=== PATIENT | female | born 1950 | race Caucasian/White ===

== ENCOUNTER 2017-08-09 16:00 | Inpatient (IN) | payer MEDICARE ==
[~2017-08-09] VITALS: Ht 162.6 cm; Wt 95.3 kg
[2017-08-30 16:19] LABS: APPEARANCE,URINE Clear (CLEAR); BILIRUBIN,URINE Negative (NEGATIVE); COLOR,URINE Yellow (YELLOW); GLUCOSE, URINE (UA) Negative (NEGATIVE); KETONES,URINE 15 mg/dL (NEGATIVE); LEUKOCYTE ESTERASE ,URINE Negative (NEGATIVE); NITRATE,URINE Negative (NEGATIVE); OCCULT BLOOD,URINE Negative (NEGATIVE); PH,URINE 5.5 (5.0-8.0); PROTEIN,URINE Negative (NEGATIVE); UROBILINOGEN,URINE 0.2 mg/dL (0.2-1.0)
[2017-08-30 16:22] VITALS: BP 116/58
[2017-08-30 16:29] LABS: INR 0.95 (0.85-1.15); PARTIAL THROMBOPLASTIN TIME 28.4 SEC (26.3-35.5)
[2017-08-30] MEDS ORDERED: MONT10TA24 PO (17:15)
[2017-08-30] MEDS ORDERED: PARO40TA72 PO (17:15)
[2017-08-30] MEDS ORDERED: FESO4TAB PO (17:15)
[2017-08-30] MEDS ORDERED: [UNRECOGNIZED DRUG - OTHER] OTIC (17:15)
[2017-08-30] MEDS ORDERED: TRAM50TA4 PO (17:15)
[2017-08-30] MEDS ORDERED: FLUTICASONE PROP IH (17:15)
[2017-08-30] MEDS ORDERED: FERS325 PO (17:15)
[2017-08-30] MEDS ORDERED: MAGN250T2 PO (17:15)
[2017-08-31] VITALS (24 sets, daily range): BP systolic 99–127; BP diastolic 47–71
[2017-08-31] MEDS: CEFAZOLIN SODIUM 1 GM VIAL IVP SCH ×3 (06:00→21:32)
[2017-08-31] MEDS ORDERED: LACTATED RINGERS 1000ML 1,000 ML IV ONE (11:33)
[2017-08-31] MEDS ORDERED: ROCURONIUM BROMIDE 10MG/1ML 5ML VL ONE ×3 (12:08→15:18)
[2017-08-31] MEDS ORDERED: PROPOFOL 10 MG/ML 20ML VIAL IV ONE (12:08)
[2017-08-31] MEDS ORDERED: LIDOCAINE PF 2% 5ML ABBOJECT ONE (12:08)
[2017-08-31] MEDS ORDERED: DEXAMETHASONE SOD PHOSPHATE 10MG/ML 1ML VIAL ONE (12:08)
[2017-08-31] MEDS ORDERED: MIDAZOLAM HCL 1 MG/ML 2ML VIAL ONE (12:08)
[2017-08-31] MEDS ORDERED: FENTANYL CITRATE PF 50 MCG/1 ML 2ML VIAL ONE (12:08)
[2017-08-31] MEDS ORDERED: BUPIVACAINE/EPI/PF 0.25% 30ML VIAL IJ ONE (12:09)
[2017-08-31] MEDS ORDERED: CEFAZOLIN SODIUM 1 GM VIAL ONE (12:09)
[2017-08-31] MEDS ORDERED: ROPIVACAINE 0.5% 5MG/ML 30ML IJ ONE ×3 (12:09→14:18)
[2017-08-31] MEDS ORDERED: LIDOCAINE HCL 4% LTA SOL 4 ML VIAL ONE (12:09)
[2017-08-31] MEDS ORDERED: NEOSTIGMINE METHYLSULFATE 1MG/ML IV ONE ×2 (12:09→16:25)
[2017-08-31] MEDS ORDERED: SUCCINYLCHOLINE CHLORIDE 20 MG/ML 10 ML VIAL ONE (12:09)
[2017-08-31] MEDS ORDERED: TRANEXAMIC ACID 1000MG/10ML IV ONE ×2 (12:10→12:37)
[2017-08-31] MEDS ORDERED: LIDOCAINE HCL-MPF 1% 5ML AMP IJ ONE (12:10)
[2017-08-31] MEDS ORDERED: ACETAMINOPHEN EXTRA STRENGTH 500 MG TABLET ONE (12:56)
[2017-08-31] MEDS ORDERED: METOCLOPRAMIDE 10 MG/2 ML VIAL ONE (12:56)
[2017-08-31] MEDS ORDERED: OXYCODONE HCL 10 MG TAB.SR.12H PO ONE (12:57)
[2017-08-31] MEDS ORDERED: KETOROLAC TROMETHAMINE 15MG/ML ONE (12:57)
[2017-08-31] MEDS ORDERED: CELECOXIB 200 MG CAP ONE (12:57)
[2017-08-31] MEDS ORDERED: ESMOLOL HCL 10 MG/ML 10 ML VIAL ONE (15:18)
[2017-08-31] MEDS ORDERED: CALCIUM CARBONATE 500 MG TABLET PO PRN (16:15)
[2017-08-31] MEDS ORDERED: FERROUS FUMARATE 324 MG TABLET PO PRN (16:15)
[2017-08-31] MEDS ORDERED: OXYCODONE HCL 5 MG TAB PO PRN (16:15)
[2017-08-31] MEDS ORDERED: POTASSIUM CHLORIDE 10% ELIXIR 20 MEQ/15 ML UDCUP PO PRN (16:15)
[2017-08-31] MEDS ORDERED: LIDOCAINE HCL-MPF 1% 2ML VIAL IVP PRN (16:15)
[2017-08-31] MEDS: ACETAMINOPHEN 325 MG TAB PO SCH ×2 (16:15→21:38)
[2017-08-31] MEDS ORDERED: DiphenhydrAMINE HCL 50 MG/ML VIAL IVP PRN (16:15)
[2017-08-31] MEDS ORDERED: POTASSIUM CHLORIDE 20MEQ/100ML 100 ML IV PRN (16:15)
[2017-08-31] MEDS ORDERED: KETOROLAC TROMETHAMINE 15MG/ML IV PRN (16:15)
[2017-08-31] MEDS ORDERED: PROMETHAZINE HCL 25 MG/ML 1ML AMPULE IM PRN (16:15)
[2017-08-31] MEDS ORDERED: DIPHENHYDRAMINE HCL 25 MG CAPSULE PO PRN (16:15)
[2017-08-31] MEDS ORDERED: TEMAZEPAM 15 MG CAPSULE PO PRN (16:15)
[2017-08-31] MEDS ORDERED: MEPERIDINE-PF 25 MG/ML SYG ONE ×2 (16:51→17:01)
[2017-08-31] MEDS: SODIUM CHLORIDE 0.9% 1000ML 1,000 ML IV SCH (17:51)
[2017-08-31] MEDS: PAROXETINE HCL 20 MG TABLET PO SCH (18:45)
[2017-08-31] MEDS ORDERED: PREGABALIN 25 MG CAP PO SCH (21:00)
[2017-08-31] MEDS: CIPROFLOXACIN HCL/DEXAMETH 7.5 ML DROPS.SUSP OT SCH (21:00)
[2017-08-31] MEDS ORDERED: CEFAZOLIN 2GM / 50 ML 50 ML IV SCH (21:15)
[2017-08-31] MEDS: ASPIRIN 325 MG TABLET PO SCH (21:31)
[2017-08-31] MEDS: MONTELUKAST SODIUM 10 MG TAB PO SCH (21:32)
[2017-08-31] MEDS: CELECOXIB 200 MG CAP PO SCH (21:32)
[2017-08-31] MEDS: FAMOTIDINE 20MG TAB 20 MG TAB PO SCH (21:32)
[2017-08-31] MEDS: PREGABALIN 75 MG CAPSULE PO SCH (21:58)
[2017-08-31] MEDS: OXYCODONE HCL 5 MG TAB PO PRN (22:47)
[2017-09-01] VITALS (7 sets, daily range): BP systolic 106–134; BP diastolic 48–66
[2017-09-01] MEDS: SODIUM CHLORIDE 0.9% 1000ML 1,000 ML IV SCH ×2 (00:06→13:05)
[2017-09-01] MEDS: ACETAMINOPHEN 325 MG TAB PO SCH ×4 (04:02→22:20)
[2017-09-01] MEDS: CEFAZOLIN SODIUM 1 GM VIAL IVP SCH (04:24)
[2017-09-01 05:25] LABS: HEMATOCRIT 40.3 % (36-48); MEAN CORPUSCULAR HEMOGLOBIN 27.6 pg (27.0-33.0); MEAN CORPUSCULAR HGB CONC 32.4 g/dL (32.0-36.0); MEAN CORPUSCULAR VOLUME 85.1 fL (79-99); NUCLEATED RED BLOOD CELLS 0.1 % (0.0-0.19); PLATELET COUNT (AUTO) 268 K/uL (130-400); RED BLOOD CELL COUNT(AUTO) 4.74 MIL/uL (4.00-5.50); RED CELL DISTRIBUTION WIDTH 19.7 % (11.0-15.5); WHITE BLOOD COUNT (AUTO) 11.5 K/uL (4.8-10.8)
[2017-09-01 05:41] LABS: POTASSIUM 4.4 mmol/L (3.5-5.1)
[2017-09-01] MEDS: TRAMADOL HCL 50 MG TABLET PO PRN ×3 (08:12→17:38)
[2017-09-01] MEDS: PAROXETINE HCL 20 MG TABLET PO SCH (08:20)
[2017-09-01] MEDS: POLYETHYLENE GLYCOL 3350 17 GM POWD.PACK PO SCH (08:20)
[2017-09-01] MEDS: ASPIRIN 325 MG TABLET PO SCH ×2 (08:20→21:30)
[2017-09-01] MEDS: PREGABALIN 75 MG CAPSULE PO SCH ×2 (08:20→21:30)
[2017-09-01] MEDS: FERROUS SULFATE 325 MG TABLET.DR PO SCH (08:21)
[2017-09-01] MEDS: CELECOXIB 200 MG CAP PO SCH ×2 (08:21→21:30)
[2017-09-01] MEDS: FAMOTIDINE 20MG TAB 20 MG TAB PO SCH ×2 (08:21→21:30)
[2017-09-01] MEDS: MAGNESIUM 250 MG PO SCH (08:24)
[2017-09-01] MEDS: FLUTICASONE PROPIONATE 50MCG/SPRAY 16 GM BOTTLE NS SCH ×2 (08:24→20:09)
[2017-09-01] MEDS: FESOTERODINE FUMARATE 4 MG PO SCH ×2 (08:24→20:04)
[2017-09-01] MEDS: CIPROFLOXACIN HCL/DEXAMETH 7.5 ML DROPS.SUSP OT SCH ×2 (08:24→20:10)
[2017-09-01] MEDS: OXYCODONE HCL 5 MG TAB PO PRN ×3 (09:25→21:35)
[2017-09-01] MEDS: PSYLLIUM SEED 1 EACH PACKET PO SCH (11:20)
[2017-09-01] MEDS: MONTELUKAST SODIUM 10 MG TAB PO SCH (21:30)
[2017-09-02 04:00] VITALS: BP 135/58
[2017-09-02] MEDS: OXYCODONE HCL 5 MG TAB PO PRN ×2 (04:27→08:29)
[2017-09-02] MEDS: ACETAMINOPHEN 325 MG TAB PO SCH ×3 (04:27→12:30)
[2017-09-02 05:38] LABS: MEAN CORPUSCULAR HEMOGLOBIN 27.8 pg (27.0-33.0); MEAN CORPUSCULAR HGB CONC 32.4 g/dL (32.0-36.0); MEAN CORPUSCULAR VOLUME 85.7 fL (79-99); PLATELET COUNT (AUTO) 192 K/uL (130-400); RED CELL DISTRIBUTION WIDTH 19.5 % (11.0-15.5)
[2017-09-02 06:08] LABS: CREATININE 0.8 mg/dL (0.5-1.5); POTASSIUM 3.5 mmol/L (3.5-5.1)
[2017-09-02] MEDS: POTASSIUM CHLORIDE 20 MEQ ERTAB PO PRN ×2 (06:43→12:31)
[2017-09-02] MEDS: PAROXETINE HCL 20 MG TABLET PO SCH (08:27)
[2017-09-02] MEDS: CELECOXIB 200 MG CAP PO SCH (08:27)
[2017-09-02] MEDS: FAMOTIDINE 20MG TAB 20 MG TAB PO SCH (08:28)
[2017-09-02] MEDS: ASPIRIN 325 MG TABLET PO SCH ×2 (08:28→17:42)
[2017-09-02] MEDS: PHENAZOPYRIDINE HCL 200 MG TABLET PO SCH ×2 (08:28→17:42)
[2017-09-02] MEDS: PREGABALIN 75 MG CAPSULE PO SCH (08:28)
[2017-09-02] MEDS: FERROUS SULFATE 325 MG TABLET.DR PO SCH (08:28)
[2017-09-02 08:44] VITALS: BP 114/62
[2017-09-02] MEDS: POLYETHYLENE GLYCOL 3350 17 GM POWD.PACK PO SCH (09:00)
[2017-09-02] MEDS: CIPROFLOXACIN HCL/DEXAMETH 7.5 ML DROPS.SUSP OT SCH (09:00)
[2017-09-02] MEDS: FLUTICASONE PROPIONATE 50MCG/SPRAY 16 GM BOTTLE NS SCH (09:00)
[2017-09-02] MEDS: MAGNESIUM 250 MG PO SCH (09:00)
[2017-09-02 11:54] VITALS: BP 134/54
[2017-09-02] MEDS: PSYLLIUM SEED 1 EACH PACKET PO SCH (12:00)
[2017-09-02] MEDS ORDERED: BISACODYL 5 MG TABLET.DR PO ONE (12:11)
[2017-09-02] MEDS ORDERED: HYDR-309 PO (13:29)
[2017-09-02] MEDS ORDERED: ASPI-1012 PO (13:29)
[2017-09-02] MEDS ORDERED: BISACODYL 5 MG TABLET.DR PO PRN (16:15)
[2017-09-02] MEDS ORDERED: METOCLOPRAMIDE 10 MG/2 ML VIAL IVP SCH (21:00)
[2017-09-03] MEDS ORDERED: BISACODYL 10 MG SUPP.RECT RC PRN (16:15)
== END 2017-09-02 18:24 | disposition home health service (06) | DRG 470 ==
LOC: DAHIP 08-31 11:10 → 4AH 08-31 17:23
PROVIDERS: ADMIT Orthopaedic Surgery; ATTEND Orthopaedic Surgery
PROC: 0SRC0J9 Replacement of Right Knee Joint with Synthetic Substitute, Cemented, Open Approach (ICD-10-PCS; principal; 2017-08-31 14:03)
DX: M17.11 Unilateral primary osteoarthritis, right knee (principal); E66.9 Obesity, unspecified; E78.00 Pure hypercholesterolemia, unspecified; N32.81 Overactive bladder; Z96.653 Presence of artificial knee joint, bilateral; F32.9 Major depressive disorder, single episode, unspecified; R33.9 Retention of urine, unspecified; E78.5 Hyperlipidemia, unspecified; M25.569 Pain in unspecified knee; F41.9 Anxiety disorder, unspecified; Z28.21 Immunization not carried out because of patient refusal
CPT/HCPCS: 36415; 80048; 81003; 85027; 85610; 85730; 88304; 88311; 96374; 96375; A4218; A4344; C1713; J0330; J0690; J1100; J1885; J2001; J2175; J2250; J2550; J2704; J2710; J2765; J2795; J3010; J3490; J7120

== ENCOUNTER 2017-10-20 09:10 | Day surgery (SDC) | payer MEDICARE ==
[~2017-10-20 09:10] MED LIST: ASPI-1012 PO; FERS325 PO; FLUTICASONE PROP IH; HYDR-309 PO; MAGN250T2 PO; MONT10TA24 PO; PARO40TA72 PO; [UNRECOGNIZED DRUG - OTHER] OTIC
[2017-10-20] MEDS ORDERED: COSYNTROPIN 0.25 MG VIAL IVP SCH (09:20)
== END 2017-10-20 11:20 | disposition home or self-care (01) ==
LOC: SDC 09:10 → DAH 09:10 → SDC 11:20
PROVIDERS: ATTEND Internal Medicine Cardiovascular Disease
DX: I95.1 Orthostatic hypotension (principal)
CPT/HCPCS: 36415; 82533 ×3; J0834

== ENCOUNTER → 2018-05-03 | Outpatient (CLI) | payer MEDICARE ==
[~2018-05-03] MED LIST changes: -HYDR-309 PO; +HYDR-4457 PO
== END | disposition home or self-care (01) ==
LOC: RAH 15:49
PROVIDERS: ATTEND Physical Medicine & Rehabilitation
DX: M47.22 Other spondylosis with radiculopathy, cervical region (principal)
CPT/HCPCS: 72052

== ENCOUNTER 2019-01-26 16:44 | Emergency (ER) | payer MEDICARE ==
[2019-01-26] MEDS ORDERED: PREDNISONE 20 MG TABLET ONE (17:27)
[2019-01-26] MEDS ORDERED: FAMOTIDINE 20MG TAB 20 MG TAB ONE (17:27)
[2019-01-26] MEDS ORDERED: DIPHENHYDRAMINE HCL 25 MG CAPSULE ONE (17:28)
[2019-01-26 17:41] LABS: BASOPHILS % (AUTO) 1.4 % (0.0-5.0); HEMATOCRIT 32.1 % (36-48); LYMPHOCYTES % (AUTO) 36.2 % (21.0-51.0); MEAN CORPUSCULAR VOLUME 77.4 fL (79-99); MONOCYTES % (AUTO) 11.6 % (3.0-13.0); NEUTROPHILS % (AUTO) 44.8 % (40.0-77.0); NUCLEATED RED BLOOD CELLS 0.1 % (0.0-0.19); PLATELET COUNT (AUTO) 137 K/uL (130-400); RED BLOOD CELL COUNT(AUTO) 4.15 MIL/uL (4.00-5.50); RED CELL DISTRIBUTION WIDTH 15.7 % (11.0-15.5); WHITE BLOOD COUNT (AUTO) 5.8 K/uL (4.8-10.8)
[2019-01-26 17:49] LABS: CREATININE 0.8 mg/dL (0.5-1.5); POTASSIUM 4.3 mmol/L (3.5-5.1)
[2019-01-26 17:51] LABS: INR 0.94 (0.85-1.15); PARTIAL THROMBOPLASTIN TIME 19.8 SEC (26.3-35.5); PROTHROMBIN TIME 9.9 SEC (9.6-11.6)
[2019-01-26 18:00] LABS: ALBUMIN 3.2 g/dL (3.5-5.0); BILIRUBIN,TOTAL 0.6 mg/dL (0.2-1.0); TOTAL PROTEIN, SERUM 6.3 g/dL (6.0-8.3)
[2019-01-26 18:01] LABS: B-TYPE NATRIURETIC PEPTIDE 92 pg/mL (0-100)
== END 2019-01-26 20:11 | disposition home or self-care (01) ==
LOC: EDH 16:44
DX: R07.89 Other chest pain (principal); R21 Rash and other nonspecific skin eruption; L29.9 Pruritus, unspecified; T45.8X5A Adverse effect of other primarily systemic and hematological agents, initial encounter; M81.0 Age-related osteoporosis without current pathological fracture; Z88.6 Allergy status to analgesic agent; Z98.890 Other specified postprocedural states
CPT/HCPCS: 36415; 71045; 80053; 82550; 83874; 83880; 84484 ×2; 85025; 85610; 85730; 93005 ×2; 99285; Q0163

== ENCOUNTER → 2019-02-13 | Outpatient (CLI) | payer MEDICARE | END | disposition home or self-care (01) | LOC: OIH 14:07 | PROVIDERS: ATTEND Physical Medicine & Rehabilitation | DX: M47.22 Other spondylosis with radiculopathy, cervical region (principal); M85.88 Other specified disorders of bone density and structure, other site | CPT/HCPCS: 72040 ==

== ENCOUNTER 2019-07-17 08:49 | Emergency (ER) | payer MEDICARE ==
[~2019-07-17 08:49] MED LIST changes: -MONT10TA24 PO; +MONT10TA26 PO
[2019-07-17 09:38] LABS: BASOPHILS % (AUTO) 0.4 % (0.0-5.0); EOSINOPHILS % (AUTO) 1.5 % (0.0-8.0); HEMATOCRIT 35.6 % (36-48); LYMPHOCYTES % (AUTO) 13.4 % (21.0-51.0); MEAN CORPUSCULAR HGB CONC 29.8 g/dL (32.0-36.0); MEAN CORPUSCULAR VOLUME 77.2 fL (79-99); MONOCYTES % (AUTO) 11.9 % (3.0-13.0); NEUTROPHILS % (AUTO) 72.3 % (40.0-77.0); PLATELET COUNT (AUTO) 279 K/uL (130-400); RED BLOOD CELL COUNT(AUTO) 4.61 MIL/uL (4.00-5.50); RED CELL DISTRIBUTION WIDTH 21.2 % (11.0-15.5); WHITE BLOOD COUNT (AUTO) 8.4 K/uL (4.8-10.8)
[2019-07-17] MEDS ORDERED: MORPHINE SULFATE 4 MG/1ML SYG ONE (09:44)
[2019-07-17] MEDS ORDERED: ONDANSETRON HCL 4 MG/2 ML VIAL ONE (09:44)
[2019-07-17 09:47] LABS: CREATININE 0.9 mg/dL (0.5-1.5); POTASSIUM 3.7 mmol/L (3.5-5.1)
[2019-07-17 09:53] LABS: ALBUMIN 3.1 g/dL (3.5-5.0); BILIRUBIN,DIRECT 0.3 mg/dL (0.0-0.3); BILIRUBIN,TOTAL 1.7 mg/dL (0.2-1.0); TOTAL PROTEIN, SERUM 6.7 g/dL (6.0-8.3)
[2019-07-17 10:05] LABS: INR 0.99 (0.85-1.15); PARTIAL THROMBOPLASTIN TIME 29.8 SEC (26.3-35.5); PROTHROMBIN TIME 10.4 SEC (9.6-11.6)
[2019-07-17] MEDS ORDERED: SODIUM CHLORIDE 0.9% 1000ML 1,000 ML IV ONE (11:23)
[2019-07-17] MEDS ORDERED: ZOSYN 3.375GM+NS 50ML 50 ML IV ONE (11:23)
[2019-07-17 17:12] LABS: APPEARANCE,URINE Clear (CLEAR); BILIRUBIN,URINE Negative (NEGATIVE); COLOR,URINE Yellow (YELLOW); GLUCOSE, URINE (UA) Negative (NEGATIVE); KETONES,URINE Negative (NEGATIVE); LEUKOCYTE ESTERASE ,URINE Negative (NEGATIVE); NITRATE,URINE Negative (NEGATIVE); OCCULT BLOOD,URINE Negative (NEGATIVE); PH,URINE 5.5 (5.0-8.0); PROTEIN,URINE Negative (NEGATIVE)
== END 2019-07-17 13:38 | disposition home or self-care (01) ==
LOC: EDH 08:49
DX: G89.18 Other acute postprocedural pain (principal); R10.12 Left upper quadrant pain; M81.0 Age-related osteoporosis without current pathological fracture; N18.9 Chronic kidney disease, unspecified; Z98.890 Other specified postprocedural states
CPT/HCPCS: 36415; 74176; 80048; 80076; 81003; 83605; 83690; 84484; 85025; 85610; 85730; 87040 ×2; 93005; 96365; 96366; 96375; 99285; J2270; J2405; J2543; J7030

== ENCOUNTER → 2019-07-26 | Outpatient (CLI) | payer MEDICARE ==
[~2019-07-26] MED LIST changes: +Ferrous Sulfate PO; +OMEP20CA12 PO; +OXYB5TAB15 PO; +PIND10TA2 PO; +VITAMIN D PO
[2019-07-26 09:49] LABS: BASOPHILS % (AUTO) 0.4 % (0.0-5.0); EOSINOPHILS % (AUTO) 4.4 % (0.0-8.0); LYMPHOCYTES % (AUTO) 25.3 % (21.0-51.0); MEAN CORPUSCULAR HEMOGLOBIN 23.1 pg (27.0-33.0); MEAN CORPUSCULAR HGB CONC 28.9 g/dL (32.0-36.0); MEAN CORPUSCULAR VOLUME 80.1 fL (79-99); MONOCYTES % (AUTO) 11.6 % (3.0-13.0); NEUTROPHILS % (AUTO) 56.8 % (40.0-77.0); PLATELET COUNT (AUTO) 549 K/uL (130-400); RED BLOOD CELL COUNT(AUTO) 4.37 MIL/uL (4.00-5.50); RED CELL DISTRIBUTION WIDTH 20.5 % (11.0-15.5); WHITE BLOOD COUNT (AUTO) 5.4 K/uL (4.8-10.8)
[2019-07-26 09:57] LABS: HEMOGLOBIN A1C 5.3 % (4.0-6.0)
[2019-07-26 10:29] LABS: ALANINE AMINOTRANSFERASE 18 U/L (12-78); ALBUMIN 2.8 g/dL (3.5-5.0); ASPARTATE AMINOTRANSFERASE 16 U/L (10-37); BILIRUBIN,TOTAL 0.4 mg/dL (0.2-1.0); CARBON DIOXIDE 31 mmol/L (21-32); CHLORIDE 100 mmol/L (101-111); CHOLESTEROL 212 mg/dL (<200); CREATININE 0.9 mg/dL (0.5-1.5); GLOMERULAR FILTR. RATE CALC 66 mL/min (>60); GLUCOSE,RANDOM 92 mg/dL (70-105); HDL CHOLESTEROL 31 mg/dL (35-85); LDL DIRECT 158 mg/dL (0-99); POTASSIUM 3.5 mmol/L (3.5-5.1); SODIUM SERUM 140 mmol/L (136-145); T4 (THYROXINE) 9.3 ug/dL (4.7-13.3); THYROID STIMULATING HORMONE 1.23 uIU/mL (0.36-3.74); TRIGLYCERIDES 114 mg/dL (30-200); UREA NITROGEN, BLOOD 9 mg/dL (7-18)
== END | disposition home or self-care (01) ==
LOC: LAB 08:38
PROVIDERS: ATTEND Surgery
DX: K21.9 Gastro-esophageal reflux disease without esophagitis (principal); D64.9 Anemia, unspecified; N18.3 Chronic kidney disease, stage 3 (moderate); M81.0 Age-related osteoporosis without current pathological fracture; R10.9 Unspecified abdominal pain; F41.9 Anxiety disorder, unspecified; M25.50 Pain in unspecified joint; R60.9 Edema, unspecified; E55.9 Vitamin D deficiency, unspecified; D50.9 Iron deficiency anemia, unspecified; E66.01 Morbid (severe) obesity due to excess calories; R74.8 Abnormal levels of other serum enzymes; Z98.84 Bariatric surgery status; Z68.41 Body mass index [BMI] 40.0-44.9, adult; Z79.899 Other long term (current) drug therapy
CPT/HCPCS: 36415; 80053; 80061; 82306; 82607; 82746; 83036; 83540; 83735; 84207; 84425; 84436; 84443; 84446; 84481; 84590; 84630; 85025

== ENCOUNTER 2019-08-03 06:48 | Day surgery (SDC) | payer MEDICARE ==
[2019-08-02 10:47] VITALS: BP 106/53
[2019-08-02 10:54] LABS: CREATININE 1.2 mg/dL (0.5-1.5); POTASSIUM 5.4 mmol/L (3.5-5.1)
[2019-08-02 15:37] LABS: BASOPHILS % (AUTO) 0.9 % (0.0-5.0); EOSINOPHILS % (AUTO) 6.3 % (0.0-8.0); HEMATOCRIT 39.3 % (36-48); LYMPHOCYTES % (AUTO) 30.7 % (21.0-51.0); MEAN CORPUSCULAR HEMOGLOBIN 22.8 pg (27.0-33.0); MEAN CORPUSCULAR HGB CONC 27.2 g/dL (32.0-36.0); MEAN CORPUSCULAR VOLUME 83.6 fL (79-99); MONOCYTES % (AUTO) 10.6 % (3.0-13.0); NEUTROPHILS % (AUTO) 51.1 % (40.0-77.0); PLATELET COUNT (AUTO) 557 K/uL (130-400); RED CELL DISTRIBUTION WIDTH 20.4 % (11.0-15.5); WHITE BLOOD COUNT (AUTO) 5.5 K/uL (4.8-10.8)
--- NOTE | 2019-08-02 15:50 | NUR ---
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
--- NOTE | 2019-08-02 16:06 | NUR ---
PER DOCTOR MARCIAL NO NEW ORDERS FOR LABS REPORTED, OKAY TO PROCEED.
[2019-08-03] VITALS (18 sets, daily range): BP systolic 95–122; BP diastolic 37–60
[~2019-08-03] VITALS: Ht 162.6 cm; Wt 95.3 kg
[2019-08-03] MEDS: CEFAZOLIN SODIUM 1 GM VIAL IVP SCH ×2 (06:00→08:29)
[~2019-08-03 06:48] MED LIST changes: -ASPI-1012 PO; -FERS325 PO; -FLUTICASONE PROP IH; -HYDR-4457 PO; -MAGN250T2 PO; -MONT10TA26 PO; -PARO40TA72 PO; +PHARMACY COMMUNICATION MISC SCH; +SODIUM CHLORIDE 0.9% 500ML 500 ML IV SCH; -[UNRECOGNIZED DRUG - OTHER] OTIC
[2019-08-03] MEDS ORDERED: LACTATED RINGERS 1000ML 1,000 ML IV ONE (07:26)
[2019-08-03] MEDS ORDERED: LIDOCAINE PF 2% 5ML ABBOJECT ONE (07:41)
[2019-08-03] MEDS ORDERED: PROPOFOL 10 MG/ML 20ML VIAL IV ONE (07:41)
[2019-08-03] MEDS ORDERED: MIDAZOLAM HCL 1 MG/ML 2ML VIAL ONE (07:41)
[2019-08-03] MEDS ORDERED: SUCCINYLCHOLINE 200MG/10ML SYR ONE (07:41)
[2019-08-03] MEDS ORDERED: ROCURONIUM 10MG/1ML SYR 10 MG/ML ML ONE (07:41)
[2019-08-03] MEDS ORDERED: FENTANYL CITRATE PF 50 MCG/1 ML 2ML VIAL ONE (07:41)
[2019-08-03] MEDS ORDERED: BUPIVACAINE/PF 0.5% 30ML VIAL ONE (07:47)
[2019-08-03] MEDS ORDERED: GLYCOPYRROLATE 1 MG/5 ML SYRINGE ONE (08:50)
[2019-08-03] MEDS ORDERED: NEOSTIGMINE 5MG/5ML SYR IV ONE (08:50)
[2019-08-03] MEDS ORDERED: KETOROLAC TROMETHAMINE 30MG/ML ONE (09:09)
[2019-08-03] MEDS ORDERED: ONDANSETRON HCL 4 MG/2 ML VIAL ONE (09:09)
[2019-08-03] MEDS ORDERED: MEPERIDINE-PF 25 MG/ML SYG ONE ×2 (09:34→09:59)
[2019-08-03] MEDS ORDERED: MORPHINE SULFATE 2 MG/ML 1ML SYG ONE (09:45)
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
== END 2019-08-03 11:20 | disposition home or self-care (01) ==
LOC: DAH 06:48
PROVIDERS: ATTEND Surgery
DX: K95.09 Other complications of gastric band procedure (principal); R10.9 Unspecified abdominal pain; M17.11 Unilateral primary osteoarthritis, right knee; K21.9 Gastro-esophageal reflux disease without esophagitis; F41.9 Anxiety disorder, unspecified; Z79.899 Other long term (current) drug therapy; Z98.84 Bariatric surgery status; Z98.890 Other specified postprocedural states; Z82.49 Family history of ischemic heart disease and other diseases of the circulatory system; Z83.3 Family history of diabetes mellitus
CPT/HCPCS: 36415; 43235; 43774; 80048; 85025; 88300; 93005; A4215 ×2; A4221; A4222; A4223; A4450; A4600; A4649 ×3; A4663; A5120; C1769 ×4; G0168; J0330; J0690; J1885; J2001; J2175 ×2; J2250; J2405; J2704; J2710; J3010; J3490 ×2; J7030 ×2; J7120

== ENCOUNTER → 2020-09-29 | Outpatient (CLI) | payer MEDICARE ==
[~2020-09-29] MED LIST changes: -PHARMACY COMMUNICATION MISC SCH; -SODIUM CHLORIDE 0.9% 500ML 500 ML IV SCH
== END | disposition home or self-care (01) ==
LOC: OIH 10:36
PROVIDERS: ATTEND Internal Medicine
DX: M19.041 Primary osteoarthritis, right hand (principal); M19.042 Primary osteoarthritis, left hand; M85.842 Other specified disorders of bone density and structure, left hand; M85.841 Other specified disorders of bone density and structure, right hand; M19.071 Primary osteoarthritis, right ankle and foot; M21.071 Valgus deformity, not elsewhere classified, right ankle; M77.31 Calcaneal spur, right foot; M19.072 Primary osteoarthritis, left ankle and foot
CPT/HCPCS: 73630